=== PATIENT | male | born 1990 | race Caucasian/White ===

== ENCOUNTER 2025-08-13 01:04 | Emergency (ER) | payer MEDICAID ==
[~2025-08-13] VITALS: Ht 182.9 cm; Wt 100.0 kg
[2025-08-13 01:09] VITALS: O2SAT 98
[2025-08-13] MEDS: DIPHENHYDRAMINE 50MG/ML VIAL IV ONE (02:30)
[2025-08-13] MEDS: MORPHINE SULFATE 4 MG/ML INJ (FOR IV/IM USE) IV ONE (02:30)
[2025-08-13] MEDS: SODIUM CHLORIDE 0.9% 1,000 ML IV ONE (02:31)
[2025-08-13] MEDS: ONDANSETRON HCL 4MG/2ML INJ IV ONE (02:32)
[2025-08-13 02:33] LABS: BASOPHILS % 1.2 % (0.0-2.0); EOSINOPHILS % 7.2 % (0.0-5.0); HEMATOCRIT. 45.2 % (42.0-52.0); HEMOGLOBIN. 14.9 g/dL (14.0-18.0); LYMPHOCYTES % 32.3 % (20.0-50.0); MEAN PLATELET VOLUME 9.0 fl (7.4-10.4); MONOCYTES % 8.0 % (2.0-8.0); NEUTROPHILS % 51.3 % (40.0-76.0); PLATELET 232 x1000/uL (130-400); RED BLOOD CELL COUNT 5.12 mill/uL (4.7-6.1); RED CELL DISTRIBUTION WIDTH 13.6 % (11.6-14.6)
[2025-08-13] MEDS: DEXAMETHASONE 10 MG/ML VIAL IV ONE (02:35)
[2025-08-13] MEDS: ACETAMINOPHEN 325MG TABLET PO ONE (02:38)
[2025-08-13] MEDS: PROCHLORPERAZINE 10MG/2ML VIAL IV ONE (02:42)
[2025-08-13 02:47] LABS: CREATININE 1.1 mg/dL (0.6-1.3); UREA NITROGEN BLOOD 17 mg/dL (9-23)
[2025-08-13] MEDS: KETOROLAC 30MG/ML VIAL IV ONE (03:22)
[2025-08-13] MEDS ORDERED: UBRO50TA PO (03:57)
[2025-08-13 04:00] VITALS: BP 140/82; PULSE 77; RESP 17; TEMP 36.6; O2SAT 99
== END 2025-08-13 04:10 | disposition home or self-care (01) ==
LOC: ER 01:04
DX: G43.909 Migraine, unspecified, not intractable, without status migrainosus (principal); Z79.52 Long term (current) use of systemic steroids; Z87.891 Personal history of nicotine dependence; Z88.6 Allergy status to analgesic agent
CPT/HCPCS: 80048; 80320; 85025; 36415; 96361; 96374; 96375; 99284; J1100; J2405; J0780; J7030; J1200; J1885; J2270; G0480